=== PATIENT | male | born 1975 | race Caucasian/White ===

== ENCOUNTER 2021-03-22 21:52 | Emergency (ER) | payer OTHER, SELFPAY ==
[2021-03-22 21:56] VITALS: BP 147/58; PULSE 79; RESP 16; TEMP 37; O2SAT 98; BMI 44.9
[2021-03-22] MEDS: Fluorescein Sodium STRIP 1 STRIP EYE-BOTH (22:14)
[2021-03-22] MEDS: Tetracaine HCl/PF 0.5% Oph Sol 4 ML DROPS 2 DROP EYE-BOTH (22:15)
--- NOTE | 2021-03-22 22:26 | ED.EYEPROB ---
HPI - Eye Problem General Chief complaint: Eye Problems Stated complaint: Loss of vision to right eye Time Seen by Provider: 03/22/21 22:01 Source: patient Mode of arrival: ambulatory Limitations: no limitations History of Present Illness HPI Narrative: 46-year-old male with a past medical history of diabetes, hypertension and obesity who currently wears contacts presenting to the ED with complaints of blurry vision to the right eye where he feels like he has white tissue paper over his right eye since 12/22 p.m. prior to arrival. He reports that when he put his contact lenses and he felt like it was irritating him therefore he took it out cleaned it with normal saline then put it back into his eye and he felt like his eye had watery discharge and he felt like his eye was still irritated although he continued to mow the lawn and noticed shortly after that he felt like there was white tissue paper over his eye and he notice he had blurry vision therefore he came here for further evaluation treatment. He reports he has thrown out the contact lens since then. He denies any direct trauma. he denies any actual eye injury or pain. Denies any other symptoms complaints or concerns at this time. chief complaint: vision change Onset (ago): hour(s) ( prior to arrival) Onset description: gradual Duration: constant and progressively worsening Location: right eye Eye Symptoms: foreign body sensation, itching, discharge ( watery) and decreased vision ( he reports he feels like he has white tissue paper over his right eye) Place: street/outdoors ( while mowing the lawn) Mechanism: none Severity: mild ( patient denies pain) Associated symptoms: none Treatments Prior to Arrival: irrigated eye and removed contact lens Related Data Previous Rx's Medication Instructions Recorded erythromycin 0.5 inch OPHTHALMIC (EYE) QID 7 03/22/21 Days #3.5 g Allergies Allergy/AdvReac Type Severity Reaction Status Date / Time sulfamethoxazole Allergy Rash Verified 03/22/21 21:56 [From Bactrim] trimethoprim [From Bactrim] Allergy Rash Verified 03/22/21 21:56 Review of Systems Review of Systems: Constitutional : No fevers, no chills, No changes in activity, No lethargy, No recent prior head injury, No agitation, No increased fussiness ENT/Mouth : No Ear Pain, No Nasal discharge/drainage Eyes: + Vision changes/blurry/decreased vision, Positive possible foreign body sensation, Positive watery eye drainage/itching, No Eye Pain, No Swelling, No Redness, No Photophobia, no discharge, no eyelid edema, no recent welding, no bleeding Cardiovascular : No Chest Pain, No SOB Respiratory : No Cough Gastrointestinal : No Nausea, No Vomiting, No abdominal Pain Genitourinary : No Dysuria, No Urinary Frequency, No Urinary Incontinence, No Urgency, No Flank Pain Musculoskeletal : No joint pain, No neck stiffness, No back pain/injury Skin : No lacerations Neuro : No unsteady gait, No Paresthesias, No Loss of Consciousness, No altered mental status, No dizziness, No Headache Denies past medical history of HIV, recent trauma, coagulopathy, recent spinal/ epidural procedure, new medication, URI symptoms, close contacts with similar symptoms, tick bite, or known CO2 exposure. Yes all other systems are reviewed and are negative PMFSH Past Medical History Attestation statement: The following information was validated with the patient. Medical History Diabetes HTN (hypertension) Obese Social History Social History Advance Directives: No Advance Directives Information Provided: No Physical Exam Vital Signs: Vital Signs: Last Vital Signs Temp 98.6 F 03/22/21 21:56 Pulse 79 03/22/21 21:56 Resp 16 03/22/21 21:56 BP 147/58 H 03/22/21 21:56 Pulse Ox 98 03/22/21 21:56 Body Mass Index 44.9 vital signs have been reviewed as normal and appeared to be correct. Blood pressure normal. Heart rate normal. Respiration rate normal. Temperature normal. Oxygen saturation normal. Appearance: Alert. Oriented X3. No acute distress. Head: Normal external exam. Normocephalic. Atraumatic. No Boggs signs noted. No raccoon eyes noted Eyes: PERRLA. EOMI. Conjunctiva are normal. Right cornea with large corneal abrasion noted. No foreign bodies are noted. Left cornea within normal limits. Funduscopic exam within normal limits. Sclera normal. Eyelids normal. No papilledema noted. Anterior chamber normal. No photophobia noted. Pressure to right eye is 18. Pressure to left eye is 24. see nurse's notes for visual acuity. ENT: EAC normal. TM's Normal. Pharynx normal. Uvula midline. Moist mucous membranes. Neck: Normal inspection. Neck supple. FROM. No adenopathy. Thyroid Normal. No meningeal signs. No neck mass noted. CVS: Normal heart rate and rhythm. Heart sound normal. No murmurs noted. Pulses normal throughout. Respiratory: No respiratory distress. Painless inspiration. Breath sounds normal. Back: Full range of motion noted. Skin: Skin warm and dry. Normal skin color. Normal skin turgor. No rashes/lesions/lacerations noted. Extremities: No lower extremity edema. Extremities exhibit normal range of motion. Extremities nontender. Neuro: Oriented X 3. No motor deficit. No sensory deficit. Reflexes normal. Course Course Course Narrative: 46-year-old male who uses contact lens presenting to the ED feeling like foreign body sensation and white tissue paper over his eye/blurry vision after putting his contact lens in and mowing the lawn. He has since removed the contact lens. He denies any direct trauma or any pain to the actual eye. On exam patient has large corneal abrasion to the right eye. No foreign bodies are noted. No other acute processes noted. Funduscopic exam within normal limits. Normal pressures to bilateral eyes. Will DC home with antibiotics and symptomatic treatment instructions to follow-up with high school guidance counselor. Patient understands agrees with this plan. MDM - Eye Problem Medical Records Attestation: I reviewed the patient's medical records. Discharge Plan Discharge Clinical Impression: Corneal abrasion Patient Disposition: Home, Self-Care Instructions: Corneal Abrasion (ED) Prescriptions: New erythromycin 5 mg/gram (0.5 %) ointment 0.5 inch ophthalmic (eye) QID 7 Days Qty: 3.5 RF: 0 Referrals: Benny Regan [Physician] - 2 days Print Language: Occitan
[2021-03-22] MEDS: Erythromycin Base 0.5% Oph Oin 1 GM TUBE 1 CM EYE-RIGHT (22:39)
--- NOTE | 2021-03-22 22:53 | PC.NURSE ---
PT A+OX3 NEURO INTACT. BARTOLOME GUILLERMO PERFORMED EYE EXAM TO PT RIGHT EYE AND LARGE SCRATCH NOTED. DR WEBSTER ALSO ASSESSED PT EYE.
== END 2021-03-22 22:54 | disposition home or self-care (01) ==
PROVIDERS: Emergency Provider Internal Medicine; PCP Internal Medicine
DX: S05.01XA Injury of conjunctiva and corneal abrasion without foreign body, right eye, initial encounter (principal); E11.9 Type 2 diabetes mellitus without complications; I10 Essential (primary) hypertension; X58.XXXA Exposure to other specified factors, initial encounter; Y93.9 Activity, unspecified; Y92.9 Unspecified place or not applicable; Y99.9 Unspecified external cause status
CPT/HCPCS: 99283